=== PATIENT | female | born 1980 | race African-American/Black ===

== ENCOUNTER 2017-03-10 20:08 | Emergency (ER) | payer MEDICARE, MEDICAID | END 2017-03-10 20:57 | disposition home or self-care (01) | LOC: ERS 20:08 | DX: F12.10 Cannabis abuse, uncomplicated (principal); E11.9 Type 2 diabetes mellitus without complications; F31.9 Bipolar disorder, unspecified; F17.210 Nicotine dependence, cigarettes, uncomplicated; I10 Essential (primary) hypertension; J45.909 Unspecified asthma, uncomplicated; M41.9 Scoliosis, unspecified | CPT/HCPCS: 99284 ==

== ENCOUNTER 2018-12-11 08:25 | Outpatient (CLI) | payer MEDICARE, MEDICAID ==
--- NOTE | 2018-12-13 09:00 | PFT ---
PATIENT HISTORY: HEIGHT: 60 IN WEIGHT: 183 SMOKER: YES HOW LONYRS PACKS PER DAY: .75 PRODUCTIVE COUGH: LUNG DISEASE: PHYSICIAN INTERPRETATION FINAL REPORT: Expiratory Flows and Vital Capacity are super normal. RV decreased, Total Lung Capacity is normal. Diffusion Capacity is normal. IMPRESSION: Normal study. Normal Diffusion capacity. Fish Icer: ANGELIA Endocrinology Nurse: ANGELIA GARCIA
== END 2018-12-11 08:26 | disposition home or self-care (01) ==
LOC: CP 08:25
PROVIDERS: ATTEND Family Medicine
DX: R06.2 Wheezing (principal)
CPT/HCPCS: 94010; 94727; 94729

== ENCOUNTER 2019-09-20 00:38 | Emergency (ER) | payer MEDICARE, OTHER | END 2019-09-20 01:20 | disposition home or self-care (01) | LOC: ERS 00:38 | DX: F31.9 Bipolar disorder, unspecified (principal); J44.9 Chronic obstructive pulmonary disease, unspecified; I10 Essential (primary) hypertension; E11.9 Type 2 diabetes mellitus without complications; F17.210 Nicotine dependence, cigarettes, uncomplicated | CPT/HCPCS: 99281 ==

== ENCOUNTER 2019-10-04 23:12 | Emergency (ER) | payer MEDICARE, OTHER | END 2019-10-05 02:25 | disposition home or self-care (01) | LOC: ERS 23:12 | DX: E11.65 Type 2 diabetes mellitus with hyperglycemia (principal); J44.9 Chronic obstructive pulmonary disease, unspecified; I10 Essential (primary) hypertension; J45.909 Unspecified asthma, uncomplicated; F31.9 Bipolar disorder, unspecified; F17.210 Nicotine dependence, cigarettes, uncomplicated | CPT/HCPCS: 36416; 99281 ==

== ENCOUNTER 2019-10-17 04:36 | Emergency (ER) | payer MEDICARE, OTHER | END 2019-10-17 04:57 | LOC: ERS 04:36 | DX: M25.562 Pain in left knee (principal); J44.9 Chronic obstructive pulmonary disease, unspecified; E11.9 Type 2 diabetes mellitus without complications; I10 Essential (primary) hypertension; F31.9 Bipolar disorder, unspecified; F17.210 Nicotine dependence, cigarettes, uncomplicated; M41.9 Scoliosis, unspecified; Z79.899 Other long term (current) drug therapy; Z79.4 Long term (current) use of insulin; Z79.891 Long term (current) use of opiate analgesic | CPT/HCPCS: 99281 ==

== ENCOUNTER 2019-10-30 04:35 | Emergency (ER) | payer MEDICARE, OTHER ==
--- NOTE | 2019-11-01 11:56 | EKG ---
Test Reason : Blood Pressure : / mmHG Vent. Rate : 083 BPM Atrial Rate : 083 BPM P-R Int : 134 ms QRS Dur : 094 ms QT Int : 412 ms P-R-T Axes : 070 016 017 degrees QTc Int : 484 ms Sinus rhythm with marked sinus arrhythmia Possible Left atrial enlargement Cannot rule out Anterior infarct , age undetermined Abnormal ECG Confirmed by ENRICO YU ([id number]), photographic editor ONRMA ARMIJO ([id number]) on 11/01/2019 11:56:08 AM Referred By: Confirmed By:ENRICO YU
== END 2019-10-30 06:18 | disposition home or self-care (01) ==
LOC: ERS 04:35
DX: R07.89 Other chest pain (principal); G89.29 Other chronic pain; I10 Essential (primary) hypertension; J44.9 Chronic obstructive pulmonary disease, unspecified; E11.9 Type 2 diabetes mellitus without complications; J45.909 Unspecified asthma, uncomplicated; F31.9 Bipolar disorder, unspecified; F17.210 Nicotine dependence, cigarettes, uncomplicated; Z79.899 Other long term (current) drug therapy; Z79.4 Long term (current) use of insulin; Z79.891 Long term (current) use of opiate analgesic
CPT/HCPCS: 93005

== ENCOUNTER 2019-10-30 08:03 | Outpatient (CLI) | payer MEDICARE, OTHER ==
--- NOTE | 2019-10-30 10:21 | RAD ---
TWO VIEWS OF THE LEFT KNEE: DATE: 10/30/2019. COMPARISON: None. HISTORY: Left knee pain. FINDINGS: Mild osteophyte formation involving the medial and lateral tibial plateau. No knee joint effusion, d isplaced fracture, or evidence of dislocation is seen. IMPRESSION: No acute osseous abnormality. POS: BEL
== END 2019-10-30 08:04 | disposition home or self-care (01) ==
LOC: BICRAD 08:03
PROVIDERS: ATTEND Family Medicine
DX: M25.562 Pain in left knee (principal)

== ENCOUNTER 2019-11-19 08:49 | Emergency (ER) | payer MEDICARE, OTHER | END 2019-11-19 09:15 | disposition home or self-care (01) | LOC: ERS 08:49 | DX: R11.2 Nausea with vomiting, unspecified (principal); Z76.0 Encounter for issue of repeat prescription; F31.9 Bipolar disorder, unspecified; F17.210 Nicotine dependence, cigarettes, uncomplicated; J45.909 Unspecified asthma, uncomplicated; E11.9 Type 2 diabetes mellitus without complications; I10 Essential (primary) hypertension; Z79.899 Other long term (current) drug therapy; Z79.4 Long term (current) use of insulin | CPT/HCPCS: 99281 ==

== ENCOUNTER 2022-01-16 10:57 | Emergency (ER) | payer MEDICARE, OTHER ==
[2022-01-16] MEDS ORDERED: Ketorolac Tromethamine 30 MG/ML VIAL ONE (11:38)
== END 2022-01-16 11:48 | disposition home or self-care (01) ==
LOC: ERS 10:57
DX: M25.562 Pain in left knee (principal); I10 Essential (primary) hypertension; E11.40 Type 2 diabetes mellitus with diabetic neuropathy, unspecified; J44.9 Chronic obstructive pulmonary disease, unspecified; W19.XXXA Unspecified fall, initial encounter; F17.210 Nicotine dependence, cigarettes, uncomplicated
CPT/HCPCS: 96372; 99281; J1885